=== PATIENT | female | born 1945 | race Asian ===

== ENCOUNTER 2018-12-21 12:29 | Emergency (ER) | payer OTHER, BC ==
--- NOTE | 2018-12-21 12:31 | PDOC ---
History of Present Illness - General Chief Complaint: Laceration Stated Complaint: head lac Time Seen by Provider: 12/21/18 12:30 - History of Present Illness Initial Comments: 12/21/18 12:40 73 year old with a history of HTN on losartan who presents after hitting her head on the floor during a pilates class. There was blood but the patient did not lose consciousness, denies nausea, vomiting or confusion. She has a headache but no other complaints. She is able to walk and talk without difficulty. ROS GENERAL/CONSTITUTIONAL: No fever or chills. No weakness. HEAD, EYES, EARS, NOSE AND THROAT: No change in vision. No ear pain or discharge. No sore throat. CARDIOVASCULAR: No chest pain or shortness of breath RESPIRATORY: No cough, wheezing, or hemoptysis. GASTROINTESTINAL: No nausea, vomiting, diarrhea or constipation. GENITOURINARY: No dysuria, frequency, or change in urination. MUSCULOSKELETAL: No joint or muscle swelling or pain. No neck or back pain. SKIN: No rash NEUROLOGIC: No vertigo, loss of consciousness, or change in strength/sensation. PE GENERAL: Awake, alert, and fully oriented, in no acute distress HEAD: No signs of trauma, normocephalic, atraumatic EYES: PERRLA, EOMI, sclera anicteric, conjunctiva clear ENT: oropharynx clear without exudates. Moist mucosa NECK: Normal ROM, supple LUNGS: No distress, speaks full sentences, clear to auscultation bilaterally HEART: Regular rate and rhythm, normal S1 and S2, no murmurs, rubs or gallops, peripheral pulses normal and equal bilaterally. ABDOMEN: Soft, nontender, normoactive bowel sounds. No guarding, no rebound. No masses EXTREMITIES : Normal inspection, Normal range of motion, no edema. No clubbing or cyanosis. NEUROLOGICAL: Cranial nerves II through XII grossly intact. Normal speech, normal gait, no focal sensorimotor deficits SKIN: Warm, Dry, normal turgor, no rashes or lesions noted MDM DDX including but not limited to: head laceration r/o intracranial trauma W/U: - head ct TX: - tylenol ED Course: Alexandria Dinero, PGY2 Emergency Medicine Past History - Past Medical History Allergies/Adverse Reactions: Allergies Allergy/AdvReac Type Severity Reaction Status Date / Time No Known Allergies Allergy Verified 12/21/18 12:30 HTN: Yes - Surgical History Abdominal Surgery: Yes (INTESTINAL BLOCKAGE) - Suicide/Smoking/Psychosocial Hx Smoking History: Never smoked Hx Alcohol Use: No *DC/Admit/Observation/Transfer Diagnosis at time of Disposition: Laceration of head - Discharge Dispostion Disposition: HOME Condition at time of disposition: Stable Decision to Admit order: No - Referrals - Patient Instructions Printed Discharge Instructions: DI for Laceration Repair Additional Instructions: You were seen in the ED for complaints of head laceration. In the ED you were evaluated with imaging and laceration repair. Your results were unremarkable. There does not appear to be an acute need for immediate hospitalization. You are advised to follow up with your Primary Care Physician within 1 week. Take Tylenol and Motrin for pain relief. Return to the ED or your Family Doctor within 5 days for staple removal Return to the ED immediately if you experience worsening pain, nausea, lightheadedness, vomiting, changes in vision or hearing. - Post Discharge Activity
[2018-12-21 12:34] VITALS: BP 158/98; PULSE 72; TEMP 97.9; BMI 21.4
[2018-12-21] MEDS ORDERED: ACETAMINOPHEN 325 MG TABLET (FP) PO ONE (12:42)
[2018-12-21] MEDS ORDERED: DIPHTH,PERTUSS(ACELL),TET 0.5 ML DISP.SYRIN IM ONE ×2 (12:46→12:56)
--- NOTE | 2018-12-21 12:50 | PDOC ---
Attending Attestation - Resident Resident Name: Alexandria Dinero - ED Attending Attestation I have performed the following: I have examined & evaluated the patient, The case was reviewed & discussed with the resident, I agree w/resident's findings & plan, Exceptions are as noted - HPI HPI: 12/21/18 12:46 73y F hx of htn presents with laceration to back of scalp - she was doing pilates and she fell backwards while sitting on a machine htting her head on a bar - there was no LOC, n/v, vision changes, numbness/tingling/weakness, neck pain, back pain or other complaints. pt is not on any blood thinners or asa on exam pt well appearing in no disterss moving all 4 extremities sponatneously and symmetrically normal gait scalp exam reveals approx 1.5 cm laceration posterior scalp will obtain CT head due to head trauma and age. to r/o acute pathology 12/21/18 13:42 ct head neg for fx lac closed with mendez wtetanus updated will dc with return precautions - Physicial Exam PE: 12/24/18 09:18 see above - Medical Decision Making 12/24/18 09:18 see above
[2018-12-21] MEDS ORDERED: ACETAMINOPHEN 325 MG TABLET (FP) ONE (12:56)
== END 2018-12-21 13:48 | disposition home or self-care (01) ==
LOC: FER 12:29
PROC: 0HQ0XZZ Repair Scalp Skin, External Approach (ICD-10-PCS; principal; 2018-12-21)
PROC: 3E0234Z Introduction of Serum, Toxoid and Vaccine into Muscle, Percutaneous Approach (ICD-10-PCS; 2018-12-21)
DX: S01.91XA Laceration without foreign body of unspecified part of head, initial encounter (principal); I10 Essential (primary) hypertension; W18.39XA Other fall on same level, initial encounter; Y93.B4 Activity, pilates; Y92.39 Other specified sports and athletic area as the place of occurrence of the external cause
CPT/HCPCS: 70450-TC; 90715; 99283-25

== ENCOUNTER 2018-12-26 08:38 | Emergency (ER) | payer OTHER, BC ==
[2018-12-26 08:47] VITALS: BP 138/88; PULSE 62; TEMP 98.4; BMI 21.4
--- NOTE | 2018-12-26 08:50 | PDOC ---
Suture Removal/Wound Check HPI - History of Present Illness Chief Complaint: Suture/Staple Removal(Here) Stated Complaint: STAPLE REMOVAL Time Seen by Provider: 12/26/18 08:42 Date of Last ED visit: 12/21/18 - Previous ED Treatment Type of procedure performed on last visit: Yes: Laceration Repair - Onset of Previous Treatment Comment:: 12/26/18 08:47 73 F here for staple removal. had head lac repaired with 4 mendez 6 days ago. No complaints. No pain, swelling, drainage, bleeding. Past History - Past Medical History Allergies/Adverse Reactions: Allergies Allergy/AdvReac Type Severity Reaction Status Date / Time No Known Allergies Allergy Verified 12/26/18 08:40 COPD: No HTN: Yes - Surgical History Abdominal Surgery: Yes (INTESTINAL BLOCKAGE) - Suicide/Smoking/Psychosocial Hx Smoking History: Never smoked Information on smoking cessation initiated: No Hx Alcohol Use: No Drug/Substance Use Hx: No *Review of Systems - Review of Systems Comments:: 12/26/18 08:47 "GENERAL/CONSTITUTIONAL: No fever or chills. No weakness. HEAD, EYES, EARS, NOSE AND THROAT: No change in vision. No ear pain or discharge. No sore throat. CARDIOVASCULAR: No chest pain, no shortness of breath, no loss of consciousness RESPIRATORY: No cough, wheezing, or hemoptysis. GASTROINTESTINAL: No nausea, vomiting, diarrhea or constipation. GENITOURINARY: No dysuria, frequency, or change in urination. MUSCULOSKELETAL: No joint or muscle swelling or pain. No neck or back pain. SKIN: No rash NEUROLOGIC: No vertigo, no change in strength/sensation. ENDOCRINE: No increased thirst. No abnormal weight change. HEMATOLOGIC/LYMPHATIC: No anemia, easy bleeding, or history of blood clots. ALLERGIC/IMMUNOLOGIC: No hives or skin allergy. *Physical Exam - Vital Signs Last Vital Signs Temp Pulse Resp BP Pulse Ox 98.4 F 62 16 138/88 99 12/26/18 08:40 12/26/18 08:40 12/26/18 08:40 12/26/18 08:40 12/26/18 08:40 - Physical Exam Comments: 12/26/18 08:48 "GENERAL: Awake, alert, and fully oriented, in no acute distress. HEAD: No signs of trauma EYES: PERRLA, EOMI, sclera anicteric, conjunctiva clear ENT: Auricles normal inspection, hearing grossly normal, nares patent, oropharynx clear without exudates. Moist mucosa NECK: Nontender, no stepoffs, Normal ROM, supple, no lymphadenopathy, JVD, or masses LUNGS: Breath sounds equal, clear to auscultation bilaterally. No wheezes, and no crackles HEART: Regular rate and rhythm, normal S1 and S2, no murmurs, rubs or gallops ABDOMEN: Soft, nontender, normoactive bowel sounds. No guarding, no rebound. No masses EXTREMITIES: Normal range of motion, no edema. No clubbing or cyanosis. No cords, erythema, or tenderness NEUROLOGICAL: Cranial nerves II through XII intact. 5/5 strength and sensation in all extremities, Normal speech, normal gait, normal cerebellar function SKIN: + 2cm scalp lac well healed, [address] Medical Decision Making - Medical Decision Making 12/26/18 08:49 73 F with 4 mendez in scalp, now removed. Wound well healed, no sign of infection. Pt is well appearing, with normal vitals. Clinically stable for DC at this time. I discussed the physical exam findings, ancillary test results and final diagnoses with the patient. I answered all of the patient's questions. The patient was satisfied with the care received and felt comfortable with the discharge plan and treatment plan. The patient agrees to follow up with the primary care physician within 24-72 hours. *DC/Admit/Observation/Transfer Diagnosis at time of Disposition: Removal of mendez - Discharge Dispostion Disposition: HOME Condition at time of disposition: Stable - Referrals - Patient Instructions Printed Discharge Instructions: DI for Suture Removal Additional Instructions: Keep your wound clean and dry. You may wash gently with soap and water, but do not scrub. Follow up with your primary doctor in 1 week. - Post Discharge Activity - Attestations Physician Attestion: 12/26/18 08:50 I, Dr. Kelby Moseley MD, attest that this document has been prepared under my direction and personally reviewed by me in its entirety. I further attest, that it accurately reflects all work, treatment, procedures and medical decision -making performed by me.
== END 2018-12-26 08:55 | disposition home or self-care (01) ==
LOC: FER 08:38
DX: Z48.02 Encounter for removal of sutures (principal)
CPT/HCPCS: 99281-25

== ENCOUNTER 2019-04-10 14:48 | Emergency (ER) | payer OTHER, BC ==
--- NOTE | 2019-04-10 15:05 | PDOC ---
Attending Attestation - Resident Resident Name: Driss Velasquez - HPI HPI: 04/10/19 16:29 pt presents to the ED complaining of three days of bright red blood at the end of her bowel movements. Denies fevers, nausea or vomiting. Does complain of a small amount of abdominal pain that is mostly localized to her LLQ. She is tolerating PO, and denies nausea or vomiting. Seen in the office by Dr. Ingram , who recommended that she come to the ED for CT scan. - Physicial Exam PE: 04/10/19 16:47 Agree with resident exam. Pt is alert and oriented and in no acute distress. abdomen is soft, non distended with tenderness in the LLQ with mild guarding and no rebound. - Medical Decision Making 04/10/19 16:59 pt presents to the ED complaining of LLQ pain and bloody stools. Will check CT abdomen pelvis to rule out diverticulitis. Will check labs to evaluate for anemia and reassess.
[2019-04-10 15:08] VITALS: BP 144/79; PULSE 62; TEMP 98.4; BMI 21.4
--- NOTE | 2019-04-10 15:40 | PDOC ---
History of Present Illness - General Chief Complaint: Hematuria Stated Complaint: llq abd pain, bloody stools x2 for 2 days Time Seen by Provider: 04/10/19 15:02 History Source: Patient Past History - Past Medical History Allergies/Adverse Reactions: Allergies Allergy/AdvReac Type Severity Reaction Status Date / Time No Known Allergies Allergy Verified 12/26/18 08:40 Home Medications: Ambulatory Orders Alendronate Sodium 10 mg PO DAILY 04/10/19 Ciprofloxacin HCl [Cipro] 500 mg PO BID #20 tablet 04/10/19 Famotidine 10 mg PO DAILY 04/10/19 metroNIDAZOLE [Flagyl -] 500 mg PO DAILY #10 tablet 04/10/19 COPD: No HTN: Yes - Surgical History Abdominal Surgery: Yes (INTESTINAL BLOCKAGE) - Psycho Social/Smoking Cessation Hx Smoking History: Never smoked Hx Alcohol Use: No Drug/Substance Use Hx: No ED Treatment Course - LABORATORY CBC & Chemistry Diagram: 04/10/19 15:54 04/10/19 15:54 Discharge - Discharge Information Problems reviewed: Yes Clinical Impression/Diagnosis: Colitis Abdominal pain Qualifiers: Abdominal location: left lower quadrant Qualified Code(s): R10.32 - Left lower quadrant pain Condition: Good Disposition: HOME - Admission No - Additional Discharge Information Prescriptions: Ciprofloxacin HCl [Cipro] 500 mg PO BID #20 tablet metroNIDAZOLE [Flagyl -] 500 mg PO DAILY #10 tablet - Follow up/Referral - Patient Discharge Instructions Additional Instructions: Take Cipro 1 tablet twice a day for 10 days and Flagyl 1 tablet once a day for 10 days for the colitis. Return to the emergency department immediately with ANY new, persistent or worsening symptoms. Continue any medications as previously prescribed by your physician. You should follow up with your primary doctor as soon as possible regarding today's emergency department visit. . Please make sure your doctor reviews the results of your emergency evaluation. Thank you for coming to the Emergency Department today for your care. It was a pleasure to see you today. Please note that your evaluation is INCOMPLETE until you follow-up with your doctor. - Post Discharge Activity
[2019-04-10 16:42] LABS: BASO % 0.8 % (0-2.0); HEMOGLOBIN 13.3 GM/dl (10.7-15.3); LYMPH % 34.2 % (8-40); MCH 30.6 pg (25.7-33.7); MCHC 33.3 g/dl (32.0-36.0); MEAN CELL VOLUME 91.9 fl (80-96); MONO % 4.9 % (3.8-10.2); NEUT % 57.1 % (42.8-82.8); PLATELET COUNT 326 K/MM3 (134-434); RBC 4.36 M/mm3 (3.60-5.2); RDW 12.8 % (11.6-15.6); WHITE BLOOD COUNT 7.4 K/mm3 (4.0-10.8)
[2019-04-10 16:54] LABS: ALBUMIN 3.8 g/dl (3.4-5.0); BILIRUBIN,TOTAL 0.5 mg/dl (0.2-1); CALCIUM 9.3 mg/dl (8.5-10); CREATININE 0.7 mg/dl (0.55-1.3); POTASSIUM 4.1 mmol/L (3.5-5.1); TOT PROT 6.7 g/dl (6.4-8.2)
--- NOTE | 2019-04-10 20:55 | PDOC ---
*Physical Exam - Vital Signs Last Vital Signs Temp Pulse Resp BP Pulse Ox 98.4 F 62 20 144/79 100 04/10/19 14:49 04/10/19 14:49 04/10/19 14:49 04/10/19 14:49 04/10/19 14:49 ED Treatment Course - LABORATORY CBC & Chemistry Diagram: 04/10/19 15:54 04/10/19 15:54 - ADDITIONAL ORDERS Additional order review: Laboratory Results 04/10/19 04/10/19 04/10/19 18:51 15:54 15:54 Sodium 137 Potassium 4.1 Chloride 106 Carbon Dioxide 25 Anion Gap 6 L BUN 16.0 Creatinine 0.7 Est GFR (CKD-EPI)AfAm 97.54 Est GFR (CKD-EPI)NonAf 84.16 Random Glucose 84 Lactic Acid 0.8 Calcium 9.3 Total Bilirubin 0.5 AST 21 ALT 16 Alkaline Phosphatase 53 Creatine Kinase 91 Troponin I Total Protein 6.7 Albumin 3.8 Lipase 121 Stool Occult Blood 04/10/19 04/10/19 15:54 15:52 Sodium Potassium Chloride Carbon Dioxide Anion Gap BUN Creatinine Est GFR (CKD-EPI)AfAm Est GFR (CKD-EPI)NonAf Random Glucose Lactic Acid Calcium Total Bilirubin AST ALT Alkaline Phosphatase Creatine Kinase Troponin I < 0.03 Total Protein Albumin Lipase Stool Occult Blood Trace 04/10/19 15:54 RBC 4.36 MCV 91.9 MCHC 33.3 RDW 12.8 MPV 9.0 Neutrophils % 57.1 Lymphocytes % 34.2 Monocytes % 4.9 Eosinophils % 3.0 Basophils % 0.8 ED Progress Note - Progress Note Progress Note: 04/10/19 20:53 Care of this patient was transferred to ok from Dr. Piedra at 1900 hrs. Patient is a 74-year-old female who comes in complaining of abdominal pain. Patient has a lactic acid pending if the lactic acid is normal patient will be discharged.Patient' lactic acid was 0.8 patient is discharged. Discharge - Discharge Information Problems reviewed: Yes Clinical Impression/Diagnosis: Colitis Abdominal pain Qualifiers: Abdominal location: left lower quadrant Qualified Code(s): R10.32 - Left lower quadrant pain Condition: Good Disposition: HOME - Admission No - Additional Discharge Information Prescriptions: Ciprofloxacin HCl [Cipro] 500 mg PO BID #20 tablet metroNIDAZOLE [Flagyl -] 500 mg PO DAILY #10 tablet - Follow up/Referral - Patient Discharge Instructions Additional Instructions: Take Cipro 1 tablet twice a day for 10 days and Flagyl 1 tablet once a day for 10 days for the colitis. Return to the emergency department immediately with ANY new, persistent or worsening symptoms. Continue any medications as previously prescribed by your physician. You should follow up with your primary doctor as soon as possible regarding today's emergency department visit. . Please make sure your doctor reviews the results of your emergency evaluation. Thank you for coming to the Emergency Department today for your care. It was a pleasure to see you today. Please note that your evaluation is INCOMPLETE until you follow-up with your doctor. - Post Discharge Activity
[2019-04-10] MEDS ORDERED: CIPROFLOXACIN 500 MG TABLET (RESTRICTED TO ID) PO ONE (20:57)
[2019-04-10] MEDS ORDERED: metroNIDAZOLE 500 MG TABLET PO ONE (20:58)
[2019-04-10] MEDS ORDERED: CIPROFLOXACIN 250 MG TABLET (RESTRICTED TO ID) PO ONE (21:01)
[2019-04-10] MEDS ORDERED: metroNIDAZOLE 250 MG TABLET ONE (21:01)
--- NOTE | 2019-04-11 10:38 | EKG ---
Test Reason : Blood Pressure : / mmHG Vent. Rate : 060 BPM Atrial Rate : 060 BPM P-R Int : 154 ms QRS Dur : 084 ms QT Int : 414 ms P-R-T Axes : 051 022 016 degrees QTc Int : 414 ms NORMAL SINUS RHYTHM CANNOT RULE OUT LATERAL INFARCT , AGE UNDETERMINED NO PREVIOUS ECGS AVAILABLE Confirmed by JUMANA YO MD ([id number]) on 04/11/2019 10:38:09 AM Referred By: DR BAGLEY Confirmed By:JUMANA YO MD
== END 2019-04-10 21:07 | disposition home or self-care (01) ==
LOC: FER 14:48
DX: K52.9 Noninfective gastroenteritis and colitis, unspecified (principal); R10.32 Left lower quadrant pain; I10 Essential (primary) hypertension
CPT/HCPCS: 36415; 74177-TC; 80053; 82272; 82550; 83605; 83690; 84484; 85025; 93005; 99282-25; Q9967